=== PATIENT | male | born 2000 | race Caucasian/White ===

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

== ENCOUNTER 2019-05-23 06:46 | Day surgery (SDC) | payer BC ==
[~2019-05-23] VITALS: Ht 188 cm; Wt 103.5 kg
[2019-05-23 07:10] VITALS: BP 129/63; PULSE 73; TEMP 97.5
[2019-05-23 09:52] VITALS: BP 135/76; PULSE 58
--- NOTE | 2019-05-23 09:52 | NUR ---
Patient returns to room 6 per cart from PACU accompanied Leatha KLINE and is alert and oriented x3. Denies pain or nausea. Temp 98.0 and room air sats 100%. IV fluids infusing and site is free of redness or swelling. Family in the room. Siderails up x2 and call light in reach.
[2019-05-23 10:07] VITALS: BP 124/76; PULSE 56
--- NOTE | 2019-05-23 10:07 | NUR ---
Drinking milk and continues to deny pain or nausea.
[2019-05-23 10:22] VITALS: BP 129/52; PULSE 55
--- NOTE | 2019-05-23 10:22 | NUR ---
Eating muffin and drinking milk. Family at bedside.
[2019-05-23 10:37] VITALS: BP 117/58; PULSE 62
--- NOTE | 2019-05-23 10:37 | NUR ---
Tolerated muffin and milk. Resting and talking with family.
--- NOTE | 2019-05-23 10:40 | NUR ---
Assisted up to the bathroom and gait is steady. Able to void and passes few drops of blood from tip of penis. Denies pain or nausea. Returns to room and IV discontinued. Patient is able to dress self.
--- NOTE | 2019-05-23 11:00 | NUR ---
Given dismissal instructions and voices understanding of this. Provided office follow up appointment date and time.
--- NOTE | 2019-05-23 11:04 | NUR ---
Patient dismissed to home per private vehicle driven by family and taken to the front door by this RN with dismissal instructions in hand.
[2019-05-23 15:21] VITALS: BP 135/67; PULSE 65; TEMP 97.1
== END 2019-05-23 11:04 | disposition home or self-care (01) ==
LOC: SDCO 06:46
DX: N35.911 Unspecified urethral stricture, male, meatal (principal); Z87.442 Personal history of urinary calculi; Q63.1 Lobulated, fused and horseshoe kidney; F90.9 Attention-deficit hyperactivity disorder, unspecified type; Z79.899 Other long term (current) drug therapy
CPT/HCPCS: J0690; J1100; J1885; J2250; J2405; J2704; J3010; J7120

== ENCOUNTER 2019-12-05 00:49 | Emergency (ER) | payer BC ==
[~2019-12-05] VITALS: Ht 188 cm; Wt 109.1 kg
[2019-12-05 00:57] VITALS: TEMP 97.9
[2019-12-05 01:23] LABS: BASO % 0.4 % (0.0-2.0); EOS # 0.3 (0.0-0.7); EOS % 2.8 % (0-4.0); GRAN # 8.1 (1.4-6.5); GRAN % 80.7 % (42.2-75.2); HEMATOCRIT 44.4 % (36.0-47.0); HEMOGLOBIN 15.1 g/dl (12.5-16.1); LYMPH % 10.4 % (20.0-51.0); MEAN CELL VOLUME 87 fl (80.0-95.0); MEAN CORPUSCULAR HEMOGLOBIN 30 pg (26.0-32.0); MEAN CORPUSCULAR HGB CONC 34 g/dl (33.0-37.0); MEAN PLATELET VOLUME 8.5 fl (7.4-10.4); MONO # 0.5 (0.1-0.6); MONO % 5.4 % (1.7-9.3); PLATELET COUNT 276 K/mm3 (130-400); RED BLOOD COUNT 5.09 M/mm3 (4.20-5.60); REDCELL DISTRIBUTION WIDTH-CV 13.7 % (11.5-14.5)
[2019-12-05 01:38] LABS: ALBUMIN 4.5 gm/dL (3.5-5.0); BILIRUBIN,TOTAL 0.6 mg/dL (0.0-1.0); C-REACTIVE PROTEIN 1.4 mg/dL (0.0-0.9); CALCIUM 9.5 mg/dL (8.4-10.2); CREATININE, serum 1.33 (0.66-1.25); POTASSIUM 4.1 mmol/L (3.4-5.0); TOTAL PROTEIN 8.3 gm/dL (6.4-8.2)
[2019-12-05 02:46] LABS: COLLECTION METHOD CLEAN CATCH
[2019-12-05 02:54] LABS: MUCOUS Present /lpf; PH 6 (5-8); SQUAMOUS EPITHELIAL 0-2 /hpf; URINE APPEARANCE Clear; URINE BACTERIA None Seen /hpf; URINE BILIRUBIN Negative (NEGATIVE); URINE BLOOD Negative (NEGATIVE); URINE COLOR Yellow; URINE GLUCOSE Negative (NEGATIVE); URINE KETONE Negative (NEGATIVE); URINE LEUKOCYTE ESTERASE Trace (NEGATIVE); URINE NITRATE Negative (NEGATIVE); URINE PROTEIN(semi-quant) Negative (NEGATIVE); URINE UROBILINOGEN Negative (NEGATIVE)
[2019-12-05] MEDS ORDERED: CEPHALEXIN500 M1 PO (03:01)
[2019-12-05 03:19] VITALS: BP 129/71; PULSE 84
== END 2019-12-05 03:31 | disposition home or self-care (01) ==
LOC: COL.ER 00:49
PROVIDERS: Physician Assistant
DX: N39.0 Urinary tract infection, site not specified (principal); Q63.0 Accessory kidney
CPT/HCPCS: J0696; J1885; J2405; J7030